=== PATIENT | male | born 1965 | race Caucasian/White ===

== ENCOUNTER 2018-08-23 11:25 | Inpatient (IN) | payer SELFPAY ==
[~2018-08-23] VITALS: Ht 170.2 cm; Wt 71.7 kg
[2018-08-23 14:15] VITALS: BP 132/73
[2018-08-23] MEDS ORDERED: VANCOMYCIN 1 GM in IV NORMAL SALINE 250ML 250 ML IV SCH ×3 (15:30→16:00)
[2018-08-23] MEDS: VANCOMYCIN PER PHARMACY MC PRN ×3 (15:49→19:53)
[2018-08-23 16:00] LABS: VANC TR 4.4 mcg/mL (10.0-20.0)
[2018-08-23] MEDS: fentaNYL PF VIAL 100 MCG/2 ML VIAL IV PRN ×2 (17:03→20:40)
[2018-08-23] MEDS: PIPERACILLIN/TAZOBACTAM 3.375 GM in IV NORMAL SALINE 50ML 50 ML IV SCH (18:00)
[2018-08-23] MEDS ORDERED: GADOBUTROL 7.5 MMOL/7.5 ML VIAL IV ONE (18:00)
[2018-08-23 19:20] VITALS: BP 119/73
[2018-08-23] MEDS: CLINDAMYCIN 600MG PREMIX 50 ML IV SCH (19:32)
--- NOTE | 2018-08-23 19:51 | RAD ---
History: Extreme pain, redness, swelling throughout the left wrist and hand for 3 days. Comparison: None. Technique: MRI of the wrist was performed using multiple planes and sequences both prior to and after intravenous gadolinium, 7.5 mL Gadavist. Findings: There is motion artifact on many sequences, limiting evaluation. Visualized osseous structures demonstrate normal signal intensity. There is no evidence of osteomyelitis. Large amount of dorsal wrist and hand soft tissue swelling and edema can be seen. There is a lesser degree of subcutaneous edema involving the volar aspect of the wrist and visualized hand. Along the radial aspect of the wrist, there is a large area of lack of enhancement involving the subcutaneous soft tissues. This is a centered at the level of the radiocarpal joint. This nonenhancing subcutaneous area measures roughly 4.7 cm in longitudinal dimension by 3.1 cm in AP dimension by 1.5 cm in transverse dimension. This is associated decreased precontrast T1 and intermediate to increased precontrast T2 signal. Consequently, this could soft tissue phlegmon versus abscess. There is evidence of fluid adjacent to a few of the extensor tendons at the level of the distal carpal row, could represent tenosynovitis. Impression: 1. Radial aspect of the distal wrist and proximal hand demonstrates an irregular, nonenhancing focus measuring roughly 4.7 x 3.1 x 1.5 cm. This could represent subcutaneous soft tissue phlegmon versus abscess. 2. There is evidence of fluid adjacent to some extensor tendons, suggesting tenosynovitis. 3. No evidence of osteomyelitis in visualized osseous structures. 4. Severe cellulitis of the dorsal wrist and visualized hand. Lesser degree of cellulitis of the volar wrist and hand. Electronically signed by: Hao Ramsay MD (08/23/2018 7:48 PM) [facility]
[2018-08-23] MEDS ORDERED: SEVOFLURANE 31 TO 60 MINUTES. IH ONE (20:30)
[2018-08-23] MEDS ORDERED: ONDANSETRON PF 4 MG/2 ML VIAL. ONE (20:30)
[2018-08-23] MEDS ORDERED: PROPOFOL 20 ML IV ONE (20:30)
[2018-08-23] MEDS ORDERED: DEXAMETHASONE SOD PHOS 20 MG/5 ML VIAL. ONE (20:30)
[2018-08-23] MEDS ORDERED: fentaNYL PF VIAL 100 MCG/2 ML VIAL ONE (20:30)
[2018-08-23] MEDS ORDERED: IV RINGERS,LACTATED 1000ML 1,000 ML IV SCH (20:32)
[2018-08-23] MEDS ORDERED: ONDANSETRON PF 4 MG/2 ML VIAL. IV PRN (20:45)
[2018-08-23] MEDS ORDERED: MORPHINE SULFATE 2 MG/ML VIAL. IV PRN (20:45)
[2018-08-23] MEDS ORDERED: HYDROmorphone 2 MG/ML VIAL IV PRN (20:45)
[2018-08-23] MEDS ORDERED: PROCHLORPERAZINE 10 MG/2 ML VIAL. IV PRN (20:45)
[2018-08-23] MEDS ORDERED: fentaNYL PF VIAL 100 MCG/2 ML VIAL IV PRN ×2 (20:45)
[2018-08-23] MEDS ORDERED: LIDOCAINE 1% PF 2 ML VIAL. ID PRN (20:45)
[2018-08-23] MEDS: LACTOBACILLUS RHAMNOSUS GG 1 CAPSULE. PO SCH (21:00)
[2018-08-23] MEDS: VANCOMYCIN 1 GM in IV NORMAL SALINE 250ML 250 ML IV SCH (22:00)
[2018-08-23 22:50] VITALS: BP 121/78
[2018-08-23 23:05] VITALS: BP 122/74
[2018-08-23 23:35] VITALS: BP 119/70
--- NOTE | 2018-08-24 00:04 | PDOC4 ---
Operative Note Operative Note Date of surgery: 08/23/2018 Preoperative diagnosis: Left wrist area abscess Postoperative diagnosis: Same Operative procedure: Irrigation debridement abscess radial side left wrist with packing Surgeon: Yari Anesthesia: Gen. Estimated blood loss: 75 mL Intraoperative cultures taken of left wrist abscess Complications: None Operative indications: Mr. Berger is a 53-year-old male who states he was helping a friend care for a wound a few days ago and subsequently developed blistering severe redness pain and swelling of his left wrist area. Clearly he had clinical findings of an abscess MRI was obtained preoperatively to further delineate it is extent. I had gone over with him the rationale for treating this infection before it spreads and destroy's further tissue. I went over with him that sometimes additional procedures may be required depending on the amount of control and response of the initial treatment ongoing wound care antibiotic treatment etc. I also indicated that this is a very serious situation that can spread into joints are along tendon sheaths or other structures sometimes rapidly. We talked about the rationale for proceeding urgently with surgical treatment he agrees and wants to proceed with exploration and appropriate treatment Operative text: Patient was identified procedure verified patient placed in the supine position on the operative table. After adequate amounts of general anesthesia were administered a tourniquet was placed on the upper arm and the left upper extremity was prepped and draped in standard sterile fashion. After timeout was performed patient procedure identified and verified a longitudinal incision was made over the most severely blistered area proximal over the radial styloid area. A return of significant amounts of purulent drainage was noted and cultured. This area was first evacuated. There was significant tissue destruction both at the skin and subcutaneous level and involving muscle and fascia but really not to the bone or joint level. Sharp debridement was carried out with scalpel and rongeurs back to viable tissue. Thorough irrigation was carried out with normal saline solution and bulb syringe. After further extensive debridement the wound was packed with iodoform gauze the distal Nancy area covered with Xeroform dressing and sterile dressings were applied patient was returned to recovery room in stable condition having tolerated procedure well FARHEEN MENDOZA MD Aug 24, 2018 00:04
[2018-08-24 00:05] VITALS: BP 103/55
[2018-08-24 00:37] VITALS: BP 110/72
[2018-08-24] MEDS: CLINDAMYCIN 600MG PREMIX 50 ML IV SCH ×2 (01:30→06:07)
[2018-08-24] MEDS: fentaNYL PF VIAL 100 MCG/2 ML VIAL IV PRN (01:31)
[2018-08-24] MEDS: PIPERACILLIN/TAZOBACTAM 3.375 GM in IV NORMAL SALINE 50ML 50 ML IV SCH ×2 (02:20→06:07)
[2018-08-24 03:00] VITALS: BP 115/62
[2018-08-24] MEDS: VANCOMYCIN 1 GM in IV NORMAL SALINE 250ML 250 ML IV SCH (04:45)
[2018-08-24 07:00] VITALS: BP 103/63
[2018-08-24 07:20] LABS: BASO # 0.1 x10^3/uL (0.0-0.2); BASO % 0 % (0-3); EOS % 0 % (0-3); HEMATOCRIT 39.7 % (39.0-53.0); HEMOGLOBIN 13.6 g/dL (13.0-17.5); LYMPH # 0.7 x10^3/uL (1.0-4.8); LYMPH % 4 % (24-48); MEAN CORPUSCULAR HEMOGLOBIN 33 pg (25-35); MEAN CORPUSCULAR HGB CONC 34 g/dL (31-37); MEAN CORPUSCULAR VOLUME 97 fL (79-100); MONO # 0.9 x10^3/uL (0.0-1.1); MONO % 6 % (0-9); NEUT # 14.2 x10^3uL (1.8-7.7); NEUT % 90 % (31-73); PLATELET COUNT 324 x10^3/uL (140-400); RED BLOOD COUNT 4.11 x10^6/uL (4.30-5.70); RED CELL DISTRIBUTION WIDTH 12.8 % (11.5-14.5); WHITE BLOOD COUNT 15.9 x10^3/uL (4.0-11.0)
[2018-08-24 07:47] LABS: ALBUMIN 2.5 g/dL (3.4-5.0); ALBUMIN/GLOBULIN RATIO 0.6 (1.0-1.7); CALCIUM 9.3 mg/dL (8.5-10.1); CREATININE 1.1 mg/dL (0.7-1.3); GFR 70.6; POTASSIUM 4.6 mmol/L (3.5-5.1); TOTAL BILIRUBIN 0.5 mg/dL (0.2-1.0)
[2018-08-24] MEDS: LACTOBACILLUS RHAMNOSUS GG 1 CAPSULE. PO SCH (08:40)
[2018-08-24 09:30] LABS: % ATYL 1 % (0-0); % LYMPHS 4 % (24-48); % MONOS 4 % (0-10); % SEGS 91 % (35-66)
[2018-08-24] MEDS ORDERED: NICOTINE 21MG PATCH. TD PRN (09:30)
[2018-08-24 09:31] LABS: PLT ESTIMATE ADEQUATE (ADEQUATE)
--- NOTE | 2018-08-24 09:46 | PDOC ---
Infectious Disease Note Vital Sign Vital Signs Vital Signs Date Time Temp Pulse Resp B/P (MAP) Pulse Ox O2 Delivery O2 Flow Rate FiO2 08/24/18 07:00 96.8 73 20 103/63 (76) 96 Room Air 96.8 08/23/18 22:00 8 Labs Lab Laboratory Tests Test 08/23/18 15:30 08/24/18 06:05 Vancomycin Level Trough 4.4 mcg/mL (10.0-20.0) Vancomycin Last Dose Date 08/23/18 Vancomycin Last Dose Time 0300 White Blood Count 15.9 x10^3/uL (4.0-11.0) Red Blood Count 4.11 x10^6/uL (4.30-5.70) Hemoglobin 13.6 g/dL (13.0-17.5) Hematocrit 39.7 % (39.0-53.0) Mean Corpuscular Volume 97 fL (79-100) Mean Corpuscular Hemoglobin 33 pg (25-35) Mean Corpuscular Hemoglobin Concent 34 g/dL (31-37) Red Cell Distribution Width 12.8 % (11.5-14.5) Platelet Count 324 x10^3/uL (140-400) Neutrophils (%) (Auto) 90 % (31-73) Lymphocytes (%) (Auto) 4 % (24-48) Monocytes (%) (Auto) 6 % (0-9) Eosinophils (%) (Auto) 0 % (0-3) Basophils (%) (Auto) 0 % (0-3) Neutrophils # (Auto) 14.2 x10^3uL (1.8-7.7) Lymphocytes # (Auto) 0.7 x10^3/uL (1.0-4.8) Monocytes # (Auto) 0.9 x10^3/uL (0.0-1.1) Eosinophils # (Auto) 0.0 x10^3/uL (0.0-0.7) Basophils # (Auto) 0.1 x10^3/uL (0.0-0.2) Segmented Neutrophils % 91 % (35-66) Lymphocytes % 4 % (24-48) Atypical Lymphocytes % (Manual) 1 % (0-0) Monocytes % 4 % (0-10) Platelet Estimate Adequate (ADEQUATE) Sodium Level 139 mmol/L (136-145) Potassium Level 4.6 mmol/L (3.5-5.1) Chloride Level 102 mmol/L (98-107) Carbon Dioxide Level 28 mmol/L (21-32) Anion Gap 9 (6-14) Blood Urea Nitrogen 11 mg/dL (8-26) Creatinine 1.1 mg/dL (0.7-1.3) Estimated GFR (Cockcroft-Gault) 70.6 BUN/Creatinine Ratio 10 (6-20) Glucose Level 136 mg/dL (70-99) Calcium Level 9.3 mg/dL (8.5-10.1) Total Bilirubin 0.5 mg/dL (0.2-1.0) Aspartate Amino Transf (AST/SGOT) 14 U/L (15-37) Alanine Aminotransferase (ALT/SGPT) 18 U/L (16-63) Alkaline Phosphatase 87 U/L (46-116) Total Protein 7.0 g/dL (6.4-8.2) Albumin 2.5 g/dL (3.4-5.0) Albumin/Globulin Ratio 0.6 (1.0-1.7) Micro MRI 08/23 Impression: 1. Radial aspect of the distal wrist and proximal hand demonstrates an irregular, nonenhancing focus measuring roughly 4.7 x 3.1 x 1.5 cm. This could represent subcutaneous soft tissue phlegmon versus abscess. 2. There is evidence of fluid adjacent to some extensor tendons, suggesting tenosynovitis. 3. No evidence of osteomyelitis in visualized osseous structures. 4. Severe cellulitis of the dorsal wrist and visualized hand. Lesser degree of cellulitis of the volar wrist and hand. Objective Assessment GPC sepsis - POA 08/22 [facility] Left hand cellulitis Left wrist abscess s/p I and D 101/6 Leukocytosis POA 08/22 now s/p Dexamethasone 08/23 Bipolar Plan Plan of Care Mr. Berger states he is leaving today as he is starting a new life in [facility] I explained he likely has staph sepsis and I would like him to stay and leaving would be AMA. I explained he is at risk of possible if this is not treated appropriately and he may need weeks of IV abx. He states he understands States he had a tetanus shot 3 years ago Will dose Dapto and Rocephin and I encouraged him to seek immediate medical attention if he leaves [facility] note reviewed Thank you # [id number] LUIS F COSTA MD Aug 24, 2018 09:46
[2018-08-24] MEDS ORDERED: LORazepam 0.5 MG TABLET PO PRN (10:45)
[2018-08-24 11:00] VITALS: BP 118/64
[2018-08-24] MEDS ORDERED: cefTRIAXone SODIUM 2 GM in IV DEXTROSE 5% 100ML 100 ML IV SCH (11:30)
[2018-08-24] MEDS ORDERED: DAPTOMYCIN IV SCH (12:00)
[2018-08-24] MEDS ORDERED: NORMAL SALINE IV SCH (12:00)
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
--- NOTE | 2018-08-24 20:16 | CONS ---
DATE OF CONSULTATION: 08/24/2018 INFECTIOUS DISEASES CONSULTATION LOCATION: The patient is in room 410. REQUESTING PHYSICIAN: Dr. Kellogg. REASON FOR CONSULTATION: Forearm, hand cellulitis/abscess. 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 He states he assisted a friend who had a forearm infection with his dressings. Approximately 4 days ago, he began to have pain and swelling in his left hand. It worsens and had some spontaneous drainage. He presented to [facility] and was found to have a white count of 17,900. Cultures were obtained. He was placed on vancomycin as well as Zosyn. His white blood cell count improved to 15.8 on 08/23/2018 and he was transferred to [facility]. He was taken to the operating room by Dr. Greenberg after undergoing an MRI of his left wrist. He was found to have 4.7 x 3.1 x 1.5 phlegmon versus abscess as well as fluid adjacent to some of the extensor tendons suggesting tenosynovitis. No osteomyelitis, but some severe cellulitis seen. Dr. Greenberg did take him to the operating room on 08/23/2018. He underwent an I and D. I discussed with him that he opened the wrist area and packed it. Currently, the patient is walking around his room. He states he is feeling much better, but he also states today he is moving to [place] and has been planned for quite some time. He did have a little fever, chills subjectively prior to coming in. No headaches, sore throat, cough. No chest pain, no nausea, vomiting, diarrhea, dysuria, frequency or urgency. No rashes. PAST MEDICAL HISTORY: Positive for hypertension, coronary artery disease, polysubstance abuse as well as bipolar disorder. He does have a history of a left orbital fracture. PAST SURGICAL HISTORY: Positive for left patellar fracture, right elbow laceration surgery and repair as well as the above mentioned left wrist radial aspect I and D and packing. REVIEW OF SYSTEMS: Otherwise negative except for as mentioned above. ALLERGIES: LISTED LITHIUM. SOCIAL HISTORY: He is a smoker. No alcohol. He has a history of previous crack and alcohol abuse. FAMILY HISTORY: Noncontributory. CURRENT MEDICATIONS: Include vancomycin, Zosyn, clindamycin, dexamethasone x 1, Lactobacillus, nicotine. Other meds are available and I have reviewed in the chart. PHYSICAL EXAMINATION: VITAL SIGNS: She is afebrile, temperature 96.8, pulse 73, respirations 20, blood pressure 103/63, satting 96% on room air. CONSTITUTIONAL: He is a little agitated. He is cooperative. He is in no acute distress. He is ambulating about the room. HEENT: His pupils are equal and reactive. Normal conjunctivae. He has questionable dentition. NECK: Supple, no JVD. LUNGS: Clear to auscultation. HEART: S1, S2, not tachycardic. ABDOMEN: Soft, nontender, nondistended, positive bowel sounds. Left upper extremity is heavily bandaged. EXTREMITIES: Otherwise, no clubbing, cyanosis or gross edema. SKIN: Warm to touch and is dressed. NEUROLOGIC: He is nonfocal, moves all extremities. Affect is appropriate, but he does seem a little agitated. LABORATORY DATA: White count 59, hemoglobin 13.6, platelets of 324 with 91 segs, 4 lymphs. Glucose 136, creatinine of 1.1 with essentially normal liver function tests. Vancomycin trough is 4.4 yesterday. Radiology reviewed in history of present illness. IMPRESSION: 1. Gram-positive sepsis, present on admission on 08/22/2018, on 1 out of 2 bottles at [facility]. 2. Left hand cellulitis. 3. Left wrist abscess, status post I and D on 08/23/2018. 4. Leukocytosis that was present on admission at [facility] on 08/22/2018, now status post dexamethasone on 08/23/2018. 5. Bipolar. RECOMMENDATIONS: Yesterday, I did add clindamycin. He had been on vancomycin and Zosyn. The patient states that he is leaving today and he is starting a new life in [place]. This move has been planned for quite some time. I explained to him that he possibly has Staph sepsis, which if not treated properly, could result in . He typically would require several weeks of antibiotics given IV. He states he understands this. I explained that I would want the patient needs to stay, but should he leave, I will dose with daptomycin and Rocephin IV x 1. I explained that if he does leave, he needs to seek medical treatment urgently. He states he understands. He does state he had a tetanus shot approximately 3 years ago, and I did review [facility] notes. Thank you for asking us to participate in this patient's care. Should you have further questions, please do not hesitate to contact me. LUIS F COSTA MD DR: MUNIR/hiral JOB#: [id number] / [id number]
== END 2018-08-24 13:00 | disposition left against medical advice (07) | DRG 854 ==
LOC: 4 NORTH 11:25
PROVIDERS: ADMIT Internal Medicine; ATTEND Internal Medicine
PROC: 0JBH0ZZ Excision of Left Lower Arm Subcutaneous Tissue and Fascia, Open Approach (ICD-10-PCS; principal; 2018-08-23 21:00)
DX: A41.2 Sepsis due to unspecified staphylococcus (principal); L02.414 Cutaneous abscess of left upper limb; L03.114 Cellulitis of left upper limb; F31.9 Bipolar disorder, unspecified; I10 Essential (primary) hypertension; I25.10 Atherosclerotic heart disease of native coronary artery without angina pectoris; Z53.21 Procedure and treatment not carried out due to patient leaving prior to being seen by health care provider; F17.210 Nicotine dependence, cigarettes, uncomplicated; Z79.899 Other long term (current) drug therapy; Z88.8 Allergy status to other drugs, medicaments and biological substances; Z87.81 Personal history of (healed) traumatic fracture
CPT/HCPCS: 36415; 73223; 80053; 80202; 85007; 85025; 87071; 87075; 90471; 90756; A9585; J0696; J0878; J1100; J2405; J2543; J2704; J3010; J3370; J3490; J7050; A4461; J7030; Q2035